=== PATIENT | male | born 1990 | race Two or more races ===

== ENCOUNTER 2016-06-29 22:30 | Emergency (ER) | payer SELFPAY ==
[~2016-06-29] VITALS: Ht 172.7 cm; Wt 67.6 kg
[2016-06-29 22:35] VITALS: BP 133/81
== END 2016-06-29 22:51 | disposition left against medical advice (07) ==
LOC: ED 22:45
DX: Z00.00 Encounter for general adult medical examination without abnormal findings (principal)